=== PATIENT | male | born 1970 | race Caucasian/White ===

== ENCOUNTER 2017-01-16 06:25 | Day surgery (SDC) | payer BC ==
[2017-01-11 12:42] VITALS: BMI 21.4
[~2017-01-16 06:25] MED LIST: CLINDAMYCIN 900 MG in DEXTROSE 5% IN WATER 50 ML IVPB ONE; HEPARIN SODIUM,PORCINE 5,000 UNIT/ML 1 ML VIAL SQ ONE; LACTATED RINGERS 1,000 ML IV SCH; fentaNYL (PF) 50 MCG/ML 2 ML AMP IV PRN
[2017-01-16 06:37] VITALS: TEMP 98
[2017-01-16] MEDS ORDERED: LACTATED RINGERS 1,000 ML IV ONE (06:39)
[2017-01-16] MEDS ORDERED: ONDANSETRON 4 MG/2 ML VIAL IVP ONE (06:49)
[2017-01-16] MEDS ORDERED: DEXAMETHASONE SOD PHOS (MDV) 100 MG/10 ML VIAL IVP ONE (06:50)
--- NOTE | 2017-01-16 07:49 | P.GSHP ---
History of Present Illness H&P Date: 01/16/17 Chief Complaint: Left breast mass This a 46-year-old male history of a left breast mass. Patient rents today for excision. He is aware the risk of wound infection seroma. Past Medical History Past Medical History: Hyperlipidemia History of Any Multi-Drug Resistant Organisms: None Reported Past Surgical History: Orthopedic Surgery Additional Past Surgical History / Comment(s): R knee arthroscopy; R hand ; R Breast mass/ benign Past Anesthesia/Blood Transfusion Reactions: No Reported Reaction Smoking Status: Current every day smoker - Past Family History Mother Family Medical History: Cancer Medications and Allergies Home Medications Medication Instructions Recorded Confirmed Type EPINEPHrine (Auto Inject) [Epipen] 0.3 mg IM ONCE PRN 01/11/17 01/11/17 History Naproxen Sodium [Aleve] 220 mg PO BID PRN 01/11/17 01/11/17 History Allergies Allergy/AdvReac Type Severity Reaction Status Date / Time amoxicillin [From Augmentin] Allergy Unknown Verified 01/11/17 14:16 bee venom protein (honey bee) Allergy Anaphylaxis Verified 01/11/17 12:32 clavulanic acid Allergy Unknown Verified 01/11/17 14:16 [From Augmentin] sulfamethoxazole Allergy Diarrhea Verified 01/16/17 06:32 [From Bactrim] trimethoprim [From Bactrim] Allergy Diarrhea Verified 01/16/17 06:32 Surgical - Exam Vital Signs Temp Pulse Resp BP Pulse Ox 98.0 F 75 18 120/76 99 01/16/17 06:36 01/16/17 06:36 01/16/17 06:36 01/16/17 06:36 01/16/17 06:36 - General well developed, no distress - Eyes PERRL - ENT normal pinna - Neck no masses - Respiratory normal expansion - Cardiovascular Rhythm: regular - Abdomen Abdomen: soft, non tender - Integumentary 4 cm mass below the left nipple complex Assessment and Plan Plan: Left breast mass. We'll perform left breast mass excision.
[2017-01-16] MEDS ORDERED: MIDAZOLAM 2 MG/2 ML VIAL ONE (07:56)
[2017-01-16] MEDS ORDERED: fentaNYL (PF) 50 MCG/ML 2 ML AMP ONE (07:56)
[2017-01-16] MEDS ORDERED: PROPOFOL 10 MG/ML 20 ML VIAL IV ONE (07:56)
[2017-01-16] MEDS ORDERED: LIDOCAINE 2%-EPI 1:100,000 20 ML VIAL SQ ONE ×2 (08:13)
--- NOTE | 2017-01-16 08:34 | P.OP ---
Date of Procedure: 01/16/17 Preoperative Diagnosis: Left breast mass Postoperative Diagnosis: Left breast mass Procedure(s) Performed: Excision of left breast mass Implants: Anesthesia: MAC Surgeon: Luis Armando Bertrand Estimated Blood Loss (ml): 5 Condition: stable Disposition: PACU Indications for Procedure: Operative Findings: Description of Procedure: A she was placed on the operative table in the supine position. He received IV sedation. His left breast was prepped and draped usual fashion. The left breast was anesthetized 1% local Xylocaine. Using a 15 blade a infra areolar incision was made. Then using Harmonic scissors the left breast mass was excised. The bones using hemostasis. Skin was closed interrupted 3-0 Monocryl suture. Dermabond was applied. Patient was sent to recovery in stable condition.
[2017-01-16 08:39] VITALS: RESP 16
[2017-01-16 09:36] VITALS: BP 119/64; PULSE 67
== END 2017-01-16 09:35 | disposition home or self-care (01) ==
LOC: OR 06:25
PROVIDERS: ATTEND Surgery
DX: N62 Hypertrophy of breast (principal); E78.5 Hyperlipidemia, unspecified; F17.200 Nicotine dependence, unspecified, uncomplicated; Z88.1 Allergy status to other antibiotic agents; Z91.030 Bee allergy status; Z88.2 Allergy status to sulfonamides; Z79.1 Long term (current) use of non-steroidal anti-inflammatories (NSAID)
CPT/HCPCS: 88307; 19120; J2250; J1644; J2405; J3010; J1100; J2704